=== PATIENT | female | born 1990 | race Caucasian/White ===

== ENCOUNTER → 2016-04-17 | Outpatient (CLI) | payer OTHER ==
[~2016-04-17] MED LIST: DESV100T PO; FOLI1TAB8 PO; THIA50TA3 PO
[2016-04-17 18:58] LABS: ALT/SGPT 18 U/L (12-78); BLOOD UREA NITROGEN 9 mg/dl (7-18); BUN/CREATININE RATIO 11.8 (10-20); CALCIUM 9.2 mg/dl (8.5-10.1); CARBON DIOXIDE 27 mmol/L (21-32); CHLORIDE 104 mmol/L (98-107); CREATININE 0.72 mg/dl (0.60-1.20); GLUCOSE 81 mg/dl (70-99); POTASSIUM 3.8 mmol/L (3.5-5.1); SODIUM 142 mmol/L (136-145)
[2016-04-17 19:01] LABS: ALB/GLOB RATIO 1.3 (0.9-2); ALKALINE PHOSPHATASE 45 U/L (45-117); AST/SGOT 21 U/L (15-37); PHOSPHORUS 2.7 mg/dl (2.5-4.9)
== END | disposition home or self-care (01) ==
LOC: C.LAB 18:08
PROVIDERS: ATTEND Registered Nurse
DX: F50.02 Anorexia nervosa, binge eating/purging type (principal)

== ENCOUNTER → 2016-04-20 | Outpatient (CLI) | payer OTHER ==
[~2016-04-20] MED LIST changes: +FOLI1TAB7 PO; -FOLI1TAB8 PO
--- NOTE | 2016-04-20 16:46 | ECHOCARDIOGRAM REPORT ---
*NOTICE TO RECEIVING CONSTITUTION PARTY AGENCY This information is strictly Confidential and protected under [place] law. [place] law prohibits you from making any further disclosure of this information unless further disclosure is expressly permitted by the written consent of the person to whom it pertains or is authorized by law. A general authorization for the release of medical or other information is not sufficient for this purpose. Hospital accepts no responsibility if the information is made available to any other person, INCLUDING THE PATIENT. Interpretation Summary * Name: WMLIZZIE Study Date: 04/20/2016 01:46 PM BP: 106/62 mmHg * Patient Location: [facility], [place], [facility] HR: 78 * : 1990 (M/d/yyyy) Gender: Female Height: 61 in * Age: 25 yrs Ethnicity: [place] Weight: 86 lb * Ordering Physician: Niharika Tafoya * Referring Physician: Niharika Tafoya * Performed By: Lizzie Kearney RDCS * * Reason For Study: MURMURS, ANOREXIA * BSA: 1.3 m2 * History: MURMURS, ANOREXIA * -- Conclusions -- * Overall normal echocardiogram. * No significant mitral valve prolapse visualized. No mitral regurgitation. * Mild pulmonic valve insufficiency (not significant). Procedure Details * A complete two-dimensional transthoracic echocardiogram was performed (2D, M-mode, Doppler and color flow Doppler). Left Ventricle * The left ventricle is grossly normal size. * There is normal left ventricular wall thickness. * Ejection Fraction = 50-55%. * The left ventricular wall motion is normal at rest. Right Ventricle * The right ventricle is grossly normal size. * The right ventricular systolic function is normal. Atria * The left atrial size is normal. * Right atrial size is normal. Mitral Valve * The mitral valve is not well visualized. * The mitral valve is grossly normal. * There is no mitral valve prolapse present. * There is no mitral valve stenosis. * There is no mitral regurgitation noted. Tricuspid Valve * The tricuspid valve is not well visualized. * The tricuspid valve is not well visualized, but is grossly normal. * There is no tricuspid stenosis. * Significant tricuspid regurgitation is absent. Aortic Valve * The aortic valve is not well visualized. * No hemodynamically significant valvular aortic stenosis. * There is no significant aortic regurgitation. Pulmonic Valve * The pulmonic valve is not well visualized. MMode 2D Measurements and Calculations IVSd 0.63 cm IVSs 0.70 cm LVIDd 3.7 cm LVIDs 2.8 cm LVPWd 0.62 cm LVPWs 1.1 cm IVS/LVPW 1.0 FS 25.3 % EDV(Teich) 59.1 ml ESV(Teich) 29.1 ml EF(Teich) 50.7 % EDV(cubed) 51.7 ml ESV(cubed) 21.6 ml EF(cubed) 58.3 % % IVS thick 9.5 % % LVPW thick 80.3 % LV mass(C)d 60.2 grams LV mass(C)dI 45.6 grams/m\S\2 LV mass(C)s 63.2 grams LV mass(C)sI 47.9 grams/m\S\2 SV(Teich) 30.0 ml SI(Teich) 22.7 ml/m\S\2 SV(cubed) 30.1 ml SI(cubed) 22.8 ml/m\S\2 Ao root diam 2.5 cm Ao root area 4.9 cm\S\2 LA dimension 2.8 cm LA/Ao 1.1 Doppler Measurements and Calculations MV E max huseyin 89.3 cm/sec MV A max huseyin 68.1 cm/sec MV E/A 1.3 MV dec time 0.20 sec Ao V2 max 106.9 cm/sec Ao max PG 4.6 mmHg Ao max PG (full) 1.7 mmHg LV V1 max PG 2.8 mmHg LV V1 max 84.4 cm/sec
== END | disposition home or self-care (01) ==
LOC: C.CPL 13:29
PROVIDERS: ATTEND Family Medicine
DX: R01.1 Cardiac murmur, unspecified (principal); F50.00 Anorexia nervosa, unspecified

== ENCOUNTER 2017-05-02 19:56 | Inpatient (IN) | payer OTHER ==
[~2017-05-02] VITALS: Ht 154.9 cm; Wt 32.5 kg
[~2017-05-02 19:56] MED LIST changes: -FOLI1TAB7 PO; +FOLI1TAB8 PO
--- NOTE | 2017-05-02 20:55 | EMERGENCY ROOM VISIT NOTE ---
History Report prepared by Miguelina: Brandon Nevarez Under the Supervision of: Dr. Kemar Reynolds M.D. First contact with patient: 20:33 Chief Complaint: ALCOHOL OVERDOSE Stated Complaint: ALCOHOL OVERDOSE Nursing Triage Summary: pt brought to main ED by ALS services for alcohol overdose. ALS report they were called by pt's friend and roommate, report pt has been drinking since saturday , hx of alcoholism and eating disorder, friend reported pt was not talking and belived this to be abnormal behavior for her. upon assessment, pt with eyes closed, will sit up in bed and open eyes, responds "Hi." but does not provide any further verbal responses. no incontinence or vomiting noted prehospital. pt skin warm and dry. pt breathing regularly and independently. pt restless in bed, intermittently sitting up and rolling from side to side. pt has noted cuts with scabs on bilateral hip areas and multiple scars on wrists. brusing noted around right eye. friend/roommate states "she has been tipsy since saturday morning at 8am. she has an alcohol problem and an eating disorder, she wont eat and also purges. i heard her moving around but she wasn't talking which is why I went to check on her. she did not have that black eye yesterday morning." History of Present Illness The patient is a 26 year old white female with a past medical history of anxiety , an eating disorder and alcohol abuse who presents to the ED via ALS with a cc of a persistent alcohol overdose beginning yesterday. Positive lack of notable responsiveness, bruising to right eye, scabs to bilateral hips. Per the patient' s friend, the patient has "a drinking problem" and was noted to be "tipsy" yesterday morning. The patient was then checked on by her friend earlier today, and the patient was not talking which is unusual for the patient when she is drunk. The patient was also noted to have a black right eye which was noted to be new, and some scabs to both hips. The patient's friend states that the patient does not use recreational drugs. History limited secondary to patient's intoxication. Source of History: friend History Limited By: intoxication Onset: Yesterday Position: other (global - alcohol intoxication) Symptom Intensity: patient has history of alcohol abuse Quality: other (patient not responding well) Timing: other (persistent) Note: Positive lack of notable responsiveness, bruising to right eye, scabs to bilateral hips. Review of Systems ROS limited secondary to patient's alcohol intoxication. Past Medical & Surgical Medical Problems: (1) Eating disorder (2) Starvation ketoacidosis Surgical Problems: (1) No significant past surgical history Family History Patient reports no known family medical history. Social History Smoking Status: Never Smoker Alcohol Use: heavy Drug Use: none Marital Status: single Housing Status: lives with roommate Occupation Status: student Current/Historical Medications Scheduled Desvenlafaxine Succinate Er (Pristiq), 100 MG PO DAILY Folic Acid (Folvite), 1 TAB PO DAILY Thiamine Hcl (Vitamin B-1), 50 MG PO DAILY Allergies Coded Allergies: No Known Allergies (Unverified , 08/06/15) Physical Exam Vital Signs Date Time Temp Pulse Resp B/P (MAP) Pulse Ox O2 Delivery O2 Flow Rate FiO2 05/03/17 01:13 130 05/03/17 01:01 119 18 124/76 94 Room Air 05/03/17 00:40 123 18 132/71 94 Room Air 05/02/17 23:24 139 20 135/79 96 Room Air 05/02/17 21:40 134 18 129/88 96 Room Air 05/02/17 20:15 136 05/02/17 20:00 97 Room Air 05/02/17 20:00 37.0 126 18 123/82 97 Room Air Physical Exam GENERAL: Stuporous but arousable. HENT: Normocephalic, atraumatic. EYES: Trace ecchymosis to the right periorbital area, no proptosis, no periorbital edema. PERRL. NECK: Supple. No nuchal rigidity. FROM. RESPIRATORY: CTAB, no rhonchi, wheezing, crackles CARDIAC: Tachycardic and regular, no MRG ABDOMEN: Soft, NTND, BS+ MSK: No chest wall TTP, no LE edema NEURO: GCS 14 [id number], mild dysarthria noted, moves all 4s on command SKIN: Multiple horiztonal incisional scars likely consistent with prior cutting over the arms. Medical Decision & Procedures ER Provider Diagnostic Interpretation: CT: Radiology results as stated below per my review and radiologist interpretation CT SCAN OF THE BRAIN WITHOUT IV CONTRAST CLINICAL HISTORY: Intoxication. Facial bruising. COMPARISON STUDY: No priors TECHNIQUE: Unenhanced axial CT scan of the brain is performed from the vertex to the skull base. A dose lowering technique was utilized adhering to the principles of ALARA. CT DOSE: 1947.04 mGy.cm FINDINGS: Brain parenchyma: The brain parenchyma is normal in appearance. There is no hemorrhage, mass effect, or evidence of acute territorial ischemia by CT criteria. Wills-white matter is preserved. No extra-axial fluid collection is seen. Ventricles, sulci, cisterns: Normal in configuration. Intracranial vasculature: The visualized intracranial vasculature at the skull base is normal in appearance. Calvarium: There is no depressed calvarial fracture. Sinuses and mastoids: The visualized paranasal sinuses are clear. The mastoid air cells are well pneumatized. Orbits: The bony orbits are grossly intact. IMPRESSION: No acute intracranial abnormality. Electronically signed by: Quincy Aggarwal M.D. 05/02/2017 9:30 PM Dictated Date/Time: 05/02/2017 9:[address] SCAN OF THE CERVICAL SPINE CLINICAL HISTORY: Intoxication. Facial bruising. COMPARISON STUDY: No priors. TECHNIQUE: CT scan of the cervical spine is performed from the skull base to the upper thoracic spine. Images are reviewed in the axial, sagittal, and coronal planes. IV contrast was not administered for this examination. A dose lowering technique was utilized adhering to the principles of ALARA. FINDINGS: Skeletal structures: The skeletal structures are well mineralized. There is no evidence of fracture or subluxation involving the cervical spine. Vertebral body height and alignment are maintained. There is straightening of the cervical lordosis with reversal centered at C4. The odontoid process and lateral masses are intact. The atlantoaxial articulation is preserved. The spinous processes appear intact. Intervertebral discs: The disc spaces are well maintained. Central canal: Widely patent. Soft tissues: The prevertebral and paraspinous soft tissues are within normal limits. Calvarium: The visualized calvarium at the skull base appears intact. Brain parenchyma: Partially visualized brain parenchyma the skull base is within normal limits. Sinuses and mastoids: The visualized paranasal sinuses are clear. The mastoid air cells are well pneumatized. Lung apices: Clear as visualized. IMPRESSION: There is no evidence of fracture or subluxation involving the cervical spine. Electronically signed by: Quincy Aggarwal M.D. 05/02/2017 9:32 PM Dictated Date/Time: 05/02/2017 9:28 PM Laboratory Results 05/02/17 21:32 Test 05/02/17 21:32 Anion Gap 14.0 mmol/L (3-11) Est Creatinine Clear Calc Drug Dose 63.4 ml/min Estimated GFR () 139.2 Estimated GFR (Non- 120.1 BUN/Creatinine Ratio 19.1 (10-20) Calcium Level 8.5 mg/dl (8.5-10.1) Ethyl Alcohol mg/dL 402.8 mg/dl (0-3) Laboratory results reviewed by me Medications Administered Medications (Trade) Dose Ordered Sig/Trina Route Start Time Stop Time Status Last Admin Dose Admin Lorazepam (Ativan Inj) 1 mg NOW STAT IV 05/02/17 22:11 05/02/17 22:12 DC 05/02/17 22:11 1 MG Sodium Chloride 1,000 ml @ 999 mls/hr Q1H1M STAT IV 05/02/17 22:11 05/02/17 23:11 DC 05/02/17 22:11 999 MLS/HR Folic Acid 1 mg/ Syringe 10 ml @ 5 mls/min ONE STAT IV 05/02/17 23:05 05/02/17 23:07 DC 05/03/17 00:05 5 MLS/MIN Lorazepam (Ativan Inj) 1 mg NOW STAT IV 05/02/17 23:05 05/02/17 23:07 DC 05/02/17 23:21 1 MG Thiamine HCl (Vitamin B-1 Inj) 100 mg NOW STAT IV 05/02/17 23:05 05/02/17 23:07 DC 05/03/17 00:02 100 MG Lorazepam (Ativan Inj) 1 mg NOW STAT IV 05/03/17 00:24 05/03/17 00:25 DC 05/03/17 00:29 1 MG ED Course 0: The patient was evaluated in room C10. A limited history and physical exam was performed. 2141: I reevaluated the patient and updated her friend. 2299: The patient was signed out to Dr. Vargas at change of shift. Medical Decision The patient is a 26 year old white female with a past medical history of anxiety , an eating disorder and alcohol abuse who presents to the ED via ALS with a cc of a persistent alcohol overdose beginning yesterday. Positive lack of notable responsiveness, bruising to right eye, scabs to bilateral hips. Differential diagnosis: Etiologies such as alcohol intoxication, toxicologic, infection, hypoglycemia, electrolyte abnormalities, cardiac sources, intracerebral event, neurologic, as well as others were entertained. Patient was seen and evaluated the bedside. Patient's history and physical exam were limited to the patient's inebriated state. Some of the history was obtained from the friend at the bedside. The friend noted the patient does have a significant alcohol history and does have a prior history of eating disorder. At bedside the patient does respond to some verbal and tactile stimuli. The patient was able to give me her name as well as the friend's name in the room. The patient was able to follow commands and moved all fours without issue. The patient's pupils are equally round and reactive. The patient did have a BMP and alcohol level obtained. Given the patient's scant ecchymosis over the right eyelid without any periorbital swelling or proptosis a CT of the head and neck were obtained. CTs of the head and neck were negative acute. The patient did have a very elevated alcohol level. The patient was given IV Ativan and IV fluids. Upon reassessment the patient was still moving about. Patient was given additional IV Ativan, folic acid, thiamine. Given the patient's inebriated state the patient would need to be reassessed with the patient was more clinically sober. I did notice that the patient did have a fair amount of linear scars over the arms concerning for possible self-harm. I did discuss the patient with the psych caseworker intake radio communications superintendent and discussed the patient would need to be re-evaluated by the physician but by the psych caseworker intake. The patient was signed out to the night physician Dr. Vargas. Head Trauma GCS Score: 15 Medication Reconcilliation Current Medication List: was personally reviewed by me Blood Pressure Screening Patient's blood pressure: Normal blood pressure Impression Primary Impression: Alcohol intoxication Additional Impressions: Altered mental status Alcohol abuse Hypokalemia Scribe Attestation The scribe's documentation has been prepared under my direction and personally reviewed by me in its entirety. I confirm that the note above accurately reflects all work, treatment, procedures, and medical decision making performed by me. Departure Information Dispostion Still a Patient (signed out to Dr. Vargas at change of shift) Referrals Niharika Tafoya M.D. (PCP) Patient Instructions My [facility] Problem Qualifiers Primary Impression: Alcohol intoxication Complication of substance-induced condition: with unspecified complication Qualified Codes: F10.929 - Alcohol use, unspecified with intoxication, unspecified Additional Impressions: Altered mental status Altered mental status type: unspecified Qualified Codes: R41.82 - Altered mental status, unspecified
--- NOTE | 2017-05-02 21:31 | DIAGNOSTIC IMAGING REPORT ---
CT SCAN OF THE BRAIN WITHOUT IV CONTRAST CLINICAL HISTORY: Intoxication. Facial bruising. COMPARISON STUDY: No priors TECHNIQUE: Unenhanced axial CT scan of the brain is performed from the vertex to the skull base. A dose lowering technique was utilized adhering to the principles of ALARA. CT DOSE: 1947.04 mGy.cm FINDINGS: Brain parenchyma: The brain parenchyma is normal in appearance. There is no hemorrhage, mass effect, or evidence of acute territorial ischemia by CT criteria. Wills-white matter is preserved. No extra-axial fluid collection is seen. Ventricles, sulci, cisterns: Normal in configuration. Intracranial vasculature: The visualized intracranial vasculature at the skull base is normal in appearance. Calvarium: There is no depressed calvarial fracture. Sinuses and mastoids: The visualized paranasal sinuses are clear. The mastoid air cells are well pneumatized. Orbits: The bony orbits are grossly intact. IMPRESSION: No acute intracranial abnormality. Electronically signed by: Quincy Aggarwal M.D. 05/02/2017 9:30 PM Dictated Date/Time: 05/02/2017 9:29 PM
--- NOTE | 2017-05-02 21:33 | DIAGNOSTIC IMAGING REPORT ---
CT SCAN OF THE CERVICAL SPINE CLINICAL HISTORY: Intoxication. Facial bruising. COMPARISON STUDY: No priors. TECHNIQUE: CT scan of the cervical spine is performed from the skull base to the upper thoracic spine. Images are reviewed in the axial, sagittal, and coronal planes. IV contrast was not administered for this examination. A dose lowering technique was utilized adhering to the principles of ALARA. FINDINGS: Skeletal structures: The skeletal structures are well mineralized. There is no evidence of fracture or subluxation involving the cervical spine. Vertebral body height and alignment are maintained. There is straightening of the cervical lordosis with reversal centered at C4. The odontoid process and lateral masses are intact. The atlantoaxial articulation is preserved. The spinous processes appear intact. Intervertebral discs: The disc spaces are well maintained. Central canal: Widely patent. Soft tissues: The prevertebral and paraspinous soft tissues are within normal limits. Calvarium: The visualized calvarium at the skull base appears intact. Brain parenchyma: Partially visualized brain parenchyma the skull base is within normal limits. Sinuses and mastoids: The visualized paranasal sinuses are clear. The mastoid air cells are well pneumatized. Lung apices: Clear as visualized. IMPRESSION: There is no evidence of fracture or subluxation involving the cervical spine. Electronically signed by: Quincy Aggarwal M.D. 05/02/2017 9:32 PM Dictated Date/Time: 05/02/2017 9:28 PM
[2017-05-02 22:05] LABS: CALCIUM 8.5 mg/dl (8.5-10.1); CREATININE 0.69 mg/dl (0.60-1.20); POTASSIUM 3.3 mmol/L (3.5-5.1)
[2017-05-02] MEDS ORDERED: LORAZEPAM 2 MG/ML 1 ML VIAL IV STA ×2 (22:11→23:05)
[2017-05-02] MEDS ORDERED: SODIUM CHLORIDE 0.9% 1000ML 1,000 ML IV STA (22:11)
[2017-05-02] MEDS ORDERED: FoLIC ACID INJ 1 MG in SYRINGE 9.8 ML IV STA (23:05)
[2017-05-02] MEDS ORDERED: THIAMINE HCL 100 MG/ML 2 ML VIAL IV STA (23:05)
[2017-05-03] MEDS ORDERED: LORAZEPAM 2 MG/ML 1 ML VIAL IV STA ×3 (00:24→03:00)
--- NOTE | 2017-05-03 02:51 | EMERGENCY ROOM VISIT NOTE ---
ED Visit Note First contact with patient: 23:00 Patient signed out to me at change of shift. Patient awaiting improved sobriety , repeat evaluation, and psych evaluation due to history of cutting and alcohol abuse. 0035: Patient with persistent agitation, additional Ativan ordered. IV fluids infusing slowly due to positional peripheral IV in the hand. 0145: Patient still with agitation, additional Ativan ordered. 0246: Patient still tachycardic but has not finished the first liter of IV fluids originally ordered. Patient wakes up easily answers questions, denies headache, chest pain, abdominal pain, nausea. Additional labs added as a precaution. 0400: Additional labs reassuring. 0502: Patient's heart rate finally improved now that IV fluids infusing. Patient continues to ask for her cell phone. Patient continues to deny any pain. 0607: Heart rate went back up again, patient now slightly more clear and requesting benzos for her tremors and anxiety. Heart rate in the 120s. Patient still clinically dehydrated, is tolerating cups of water at bedside. Staff has helped her ambulate to the bathroom. Patient admits to history of cutting states she has previously spoken with counselors about this. 2 subacute -appearing lacerations on right hip noted. Pt with mild tremors and continues to be restless. BP not elevated. No active hallucinations based on bedside conversation. Discussed with Dr. Rodriguez for additional evaluation for possible etoh withdrawal.
[2017-05-03 02:59] LABS: BASO % 0.5 %; BASO ABS # 0.04 K/uL (0-0.2); HEMATOCRIT 38.9 % (37-47); HEMOGLOBIN 14.3 g/dL (12.0-16.0); IG# 0.01 K/uL (0.00-0.02); LYMPH % 33.6 %; LYMPH ABS # 2.73 K/uL (1.2-3.4); MEAN CORPUSCULAR HEMOGLOBIN 35.3 pg (25-34); MEAN CORPUSCULAR HGB CONC 36.8 g/dl (32-36); MEAN PLATELET VOLUME 8.6 fL (7.4-10.4); MONO % 4.6 %; MONO ABS # 0.37 K/uL (0.11-0.59); NEUT % 61.2 %; NEUT ABS # 4.98 K/uL (1.4-6.5); PLATELET COUNT 190 K/uL (130-400); RED CELL DISTRIBUTION WIDTH CV 12.6 % (11.5-14.5); WHITE BLOOD COUNT 8.13 K/uL (4.8-10.8)
[2017-05-03] MEDS ORDERED: SODIUM CHLORIDE 0.9% 1000ML 1,000 ML IV STA ×2 (03:05→05:51)
[2017-05-03 04:36] LABS: ALBUMIN 4.4 gm/dl (3.4-5.0); TOTAL PROTEIN 8.2 gm/dl (6.4-8.2)
[2017-05-03] MEDS: LORAZEPAM 2 MG/ML 1 ML VIAL IV PRN ×2 (05:55→06:11)
--- NOTE | 2017-05-03 06:25 | History and Physical ---
History & Physical Date & Time of Service: May 03, 2017 at 06:02 Chief Complaint: Alcohol Overdose Primary Care Physician: Niharika Tafoya M.D. History of Present Illness Source: patient, hospital records 26 y/o F Hx Anorexia Nervosa, ETOH abuse. Pt was found at home severely intoxicated and brought to the ER by a friend. She was poorly responsive on arrival with an impressive alcohol level of 402. She appeared to be developing withdrawal symptoms while recovering in the ER exhibiting tremors and tachycardia. The pt had received a total of 9mg Ativan at the time of medical evaluation and was unable to stay awake long enough to answer any questions. Past Medical/Surgical History 1) Anorexia nervosa with history of inpatient treatment 2) GERD 3) Alcohol abuse 4) Osteopenia 5) Vitamin D deficiency 6) Cutting Family History Patient reports no known family medical history. Social History History of alcohol abuse Smoking Status: Never Smoker Drug Use: none Marital Status: single Occupational Status: student Allergies Coded Allergies: No Known Allergies (Unverified , 08/06/15) Home Medications Scheduled Desvenlafaxine Succinate Er (Pristiq), 100 MG PO DAILY Folic Acid (Folvite), 1 TAB PO DAILY Thiamine Hcl (Vitamin B-1), 50 MG PO DAILY Review of Systems Cannot obtain Cardiovascular: + PND Physical Exam Vital Signs Date Time Temp Pulse Resp B/P (MAP) Pulse Ox O2 Delivery O2 Flow Rate FiO2 05/03/17 05:56 108 22 116/80 97 Room Air 05/03/17 05:05 122 05/03/17 04:43 115 20 110/70 96 Room Air 05/03/17 04:00 128 24 95 05/03/17 03:51 138/91 05/03/17 03:30 140 14 95 05/03/17 03:00 144 15 97 05/03/17 02:59 126/77 05/03/17 02:30 141 18 96 05/03/17 02:24 126/76 05/03/17 02:00 147 19 96 05/03/17 01:43 132 18 127/84 97 Room Air 05/03/17 01:37 127 05/03/17 01:13 130 05/03/17 01:01 119 18 124/76 94 Room Air 05/03/17 00:40 123 18 132/71 94 Room Air 05/02/17 23:24 139 20 135/79 96 Room Air 05/02/17 21:40 134 18 129/88 96 Room Air 05/02/17 20:15 136 05/02/17 20:00 97 Room Air 05/02/17 20:00 37.0 126 18 123/82 97 Room Air General Appearance: + pertinent finding (Somnolent, thin, young female ) Head: normocephalic Eyes: normal inspection ENT: normal ENT inspection Neck: supple, no JVD Respiratory/Chest: chest non-tender, lungs clear, normal breath sounds Cardiovascular: no edema, no gallop, + tachycardia Abdomen/GI: normal bowel sounds, non tender, soft Back: normal inspection, no CVA tenderness Extremities/Musculoskelatal: normal inspection, no calf tenderness, normal capillary refill Neurologic/Psych: + pertinent finding (cannot complete exam - pupils are equal - moves all extrems spontaneously) Skin: + pertinent finding (Cutting scars on arms - a few on hip which appear more recent) Diagnostics Laboratory Results Results Past 24 Hours Test 05/02/17 21:32 05/03/17 02:53 05/03/17 03:15 Range/Units Sodium Level 143 136-145 mmol/L Potassium Level 3.3 3.5-5.1 mmol/L Chloride Level 106 98-107 mmol/L Carbon Dioxide Level 23 21-32 mmol/L Anion Gap 14.0 3-11 mmol/L Blood Urea Nitrogen 13 7-18 mg/dl Creatinine 0.69 0.60-1.20 mg/dl Est Creatinine Clear Calc Drug Dose 63.4 ml/min Estimated GFR () 139.2 Estimated GFR (Non- 120.1 BUN/Creatinine Ratio 19.1 10-20 Random Glucose 103 70-99 mg/dl Calcium Level 8.5 8.5-10.1 mg/dl Total Bilirubin 0.7 0.2-1 mg/dl Direct Bilirubin 0.2 0-0.2 mg/dl Aspartate Amino Transf (AST/SGOT) 50 15-37 U/L Alanine Aminotransferase (ALT/SGPT) 24 12-78 U/L Alkaline Phosphatase 60 45-117 U/L Total Protein 8.2 6.4-8.2 gm/dl Albumin 4.4 3.4-5.0 gm/dl Lipase 228 73-393 U/L Ethyl Alcohol mg/dL 402.8 0-3 mg/dl White Blood Count 8.13 4.8-10.8 K/uL Red Blood Count 4.05 4.2-5.4 M/uL Hemoglobin 14.3 12.0-16.0 g/dL Hematocrit 38.9 37-47 % Mean Corpuscular Volume 96.0 80-100 fL Mean Corpuscular Hemoglobin 35.3 25-34 pg Mean Corpuscular Hemoglobin Concent 36.8 32-36 g/dl Platelet Count 190 130-400 K/uL Mean Platelet Volume 8.6 7.4-10.4 fL Neutrophils (%) (Auto) 61.2 % Lymphocytes (%) (Auto) 33.6 % Monocytes (%) (Auto) 4.6 % Eosinophils (%) (Auto) 0.0 % Basophils (%) (Auto) 0.5 % Neutrophils # (Auto) 4.98 1.4-6.5 K/uL Lymphocytes # (Auto) 2.73 1.2-3.4 K/uL Monocytes # (Auto) 0.37 0.11-0.59 K/uL Eosinophils # (Auto) 0.00 0-0.5 K/uL Basophils # (Auto) 0.04 0-0.2 K/uL RDW Standard Deviation 44.0 36.4-46.3 fL RDW Coefficient of Variation 12.6 11.5-14.5 % Immature Granulocyte % (Auto) 0.1 % Immature Granulocyte # (Auto) 0.01 0.00-0.02 K/uL Urine Opiates Screen NEG NEG Urine Methadone, Qualitative NEG NEG Urine Barbiturates NEG NEG Urine Phencyclidine (PCP) Level NEG NEG Ur Amphetamine/Methamphetamine NEG NEG MDMA (Ecstasy) Screen NEG NEG Urine Benzodiazepines Screen NEG NEG Urine Cocaine Metabolite NEG NEG Urine Marijuana (THC) NEG NEG Impression Assessment and Plan 26 y/o F Hx Anorexia Nervosa, ETOH abuse. Pt was found at home severely intoxicated and brought to the ER by a friend. She was poorly responsive on arrival with an impressive alcohol level of 402. She appeared to be developing withdrawal symptoms while recovering in the ER exhibiting tremors and tachycardia. The pt had received a total of 9mg Ativan at the time of medical evaluation and was unable to stay awake long enough to answer any questions. 1) ETOH abuse and withdrawal - initial level was dangerously high. She will continue to receive IVF, scheduled Librium, PRN Ativan, IV thiamine and folate. The pt should be assessed by mental health prior to DC as she is at significant risk for self harm. 2) Anorexia - BMI qualifies as severe anorexia - again, she should be assessed by mental health prior to DC. 3) Hypokalemia - mild - will provide K and Mg - EKG is pending Full code - SCDs due to fall/trauma risk Total time for this admit including review of labs, meds, records - discussion with pt and ER attending - 35 min Level of Care Telemetry Resuscitation Status FULL RESUSCITATION VTE Prophylaxis Given or contraindicated: SCD's
[2017-05-03] MEDS ORDERED: LORAZEPAM 2 MG/ML 1 ML VIAL IV PRN ×2 (06:30)
[2017-05-03] MEDS ORDERED: ACETAMINOPHEN 325 MG TAB PO PRN (06:30)
[2017-05-03] MEDS ORDERED: MAGNESIUM HYDROXIDE SUSP 30 ML UDC PO PRN (06:30)
[2017-05-03] MEDS ORDERED: ALUMINUM/MAGNESIUM/SIMETH (MAALOX MAX) 30 ML UDC PO PRN (06:30)
[2017-05-03] MEDS ORDERED: ONDANSETRON INJ 2 MG/ML 2 ML VIAL IV PRN (06:30)
[2017-05-03] MEDS ORDERED: POLYETHYLENE (MIRALAX) 17 GM PACK PO PRN (06:30)
[2017-05-03 07:35] VITALS: BP 128/89; PULSE 119; TEMP 36.8; O2SAT 96; BMI 13.5
[2017-05-03] MEDS: CHLORDIAZEPOXIDE 10 MG CAP PO SCH ×3 (07:54→20:38)
[2017-05-03] MEDS ORDERED: MAGNESIUM SULFATE 1GM / D5W 1 GM in PREMIXED IN D5W 100 ML IV ONE (08:00)
[2017-05-03] MEDS: D5NSS + 20MEQ KCL 1,000 ML IV SCH ×3 (08:07→22:56)
[2017-05-03] MEDS: FoLIC ACID INJ 1 MG in SYRINGE 9.8 ML IV SCH (08:08)
[2017-05-03] MEDS ORDERED: INFLUENZA ADMINISTRATION CHARGE ONE (08:30)
[2017-05-03] MEDS ORDERED: INFLUENZA VIRUS QUAD VACCINE 0.5 ML SYR IM. ONE (08:30)
[2017-05-03] MEDS ORDERED: TPN/PPN CONSULT PHARMACY STA (09:32)
[2017-05-03] MEDS ORDERED: TPN/PPN CONSULT PHARMACY PRN (09:45)
[2017-05-03 11:21] VITALS: BP 119/79; PULSE 112; TEMP 37; O2SAT 99
[2017-05-03] MEDS ORDERED: POTASSIUM PHOSPHATE INJ 21 MMOL in SODIUM CHLORIDE 0.9% 500ML 500 ML IV ONE ×2 (13:30→22:45)
[2017-05-03 14:32] VITALS: Ht 154.9 cm; Wt 32.5 kg
--- NOTE | 2017-05-03 14:38 | Psychiatric Progress Notes ---
Psychiatric Progress Note Date of Service May 03, 2017. Notes patient with ETOH OD, attempted to see patient after 11 am, liaison unable to assess due to medical condition/sedation from AWSS protocol meds.
[2017-05-03 15:11] VITALS: BP 130/88; PULSE 106; TEMP 36.8; O2SAT 100
--- NOTE | 2017-05-03 15:56 | History and Physical ---
History & Physical Date of Service May 03, 2017. History & Physical 26 yo female with severe protein caloric malnutrition and possible alcohol withdrawal. Patient has electrolyte abnormalities including hypokalemia and hypophosphatemia. These were replaced. Initially tried to obtain intake through NG tube but patient refused. I explained to patient that it is important that she eats to improve her BMI and also to regain intestinal function. However, I am ok with waiting a day as her electrolytes are not completely replenished. Given that refeeding will likely lead to more hypophosphatemia. It will be easier to manage if her electrolytes are at baseline before refeeding. Patient agrees to stay in hospital after thoughts of leaving AMA. Patient understands that this may be a long hospital stay. Psych is on the case but did not examine patient today.
[2017-05-03 19:16] VITALS: BP 121/91; PULSE 91; TEMP 37.1; O2SAT 99
[2017-05-03 21:26] LABS: CALCIUM 7.8 mg/dl (8.5-10.1); CARBON DIOXIDE 24 mmol/L (21-32); CREATININE 0.49 mg/dl (0.60-1.20); GLUCOSE 96 mg/dl (70-99); PHOSPHORUS 2.1 mg/dl (2.5-4.9)
[2017-05-03 21:29] LABS: BLOOD UREA NITROGEN 5 mg/dl (7-18); POTASSIUM 3.9 mmol/L (3.5-5.1); SODIUM 133 mmol/L (136-145)
[2017-05-03] MEDS ORDERED: SODIUM CHLORIDE 1 GM TAB PO ONE (22:30)
[2017-05-03] MEDS ORDERED: POTASSIUM PHOS 3 MMOL/1 ML INFUSION IV ONE (22:30)
[2017-05-03] MEDS: THIAMINE HCL INJ 100 MG in SYRINGE 9 ML IV SCH (22:56)
[2017-05-03 23:39] VITALS: BP 132/97; PULSE 89; TEMP 36.6; O2SAT 99
[2017-05-04 04:20] VITALS: BP 122/86; PULSE 75; TEMP 36.6; O2SAT 98
[2017-05-04 06:14] LABS: HEMATOCRIT 36.6 % (37-47); HEMOGLOBIN 13.3 g/dL (12.0-16.0); MEAN CELL VOLUME 96.1 fL (80-100); MEAN CORPUSCULAR HEMOGLOBIN 34.9 pg (25-34); MEAN CORPUSCULAR HGB CONC 36.3 g/dl (32-36); MEAN PLATELET VOLUME 8.8 fL (7.4-10.4); PLATELET COUNT 113 K/uL (130-400); RED CELL DISTRIBUTION WIDTH CV 12.4 % (11.5-14.5); RED CELL DISTRIBUTION WIDTH SD 42.9 fL (36.4-46.3); WHITE BLOOD COUNT 3.59 K/uL (4.8-10.8)
[2017-05-04 06:45] LABS: BLOOD UREA NITROGEN 4 mg/dl (7-18); CALCIUM 7.9 mg/dl (8.5-10.1); CARBON DIOXIDE 23 mmol/L (21-32); CREATININE 0.49 mg/dl (0.60-1.20); GLUCOSE 93 mg/dl (70-99); PHOSPHORUS 2.3 mg/dl (2.5-4.9); POTASSIUM 3.6 mmol/L (3.5-5.1); SODIUM 135 mmol/L (136-145)
[2017-05-04] MEDS: FoLIC ACID INJ 1 MG in SYRINGE 9.8 ML IV SCH (08:02)
[2017-05-04] MEDS: MULTI-VITAMIN INFUSION INJ 10 ML, THIAMINE HCL INJ 100 MG, FoLIC ACID INJ 1 MG in SODIU... IV SCH (08:05)
[2017-05-04] MEDS: CHLORDIAZEPOXIDE 10 MG CAP PO SCH ×3 (08:05→20:39)
[2017-05-04 08:13] VITALS: BP 136/93; PULSE 76; TEMP 36.7; O2SAT 100
[2017-05-04] MEDS ORDERED: NURSING VERBAL MED ORDER ONE (11:45)
[2017-05-04 12:03] VITALS: BP 125/90; PULSE 83; TEMP 36.7; O2SAT 100
[2017-05-04 15:22] VITALS: BP 134/95; PULSE 79; TEMP 37.1; O2SAT 100
--- NOTE | 2017-05-04 15:56 | Progress Note ---
Subjective Date of Service: May 04, 2017. Subjective Pt evaluation today including: conversation w/ patient, conversation w/ family , physical exam, chart review, lab review, review of studies, review of inpatient medication list Pain: none PO Intake: good Voiding: no voiding problems Patient is seen and examined by me. Pt denies cp, sob, dizziness, palpitation and LOC. Pt denies nausea, vomiting, abdominal pain and diarrhea.pt still has a poor appetite and after a lengthy discussion with her able to connivence her to eat breakfast which include cereal with milk and strawberries. I think its her eating disorder rather alcohol disorder which is causing her not to eat.Both parent live far her father is trying to make it to hospital today.We had a brief conversation over phone with both parent. 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 Pt is very flat and does not engage in much conversation. No intension to harm self or other Problem List Medical Problems: (1) Alcohol intoxication Status: Acute (2) Alcohol intoxication Status: Acute (3) Altered mental status Status: Acute Review of Systems Psychiatric: + anxiety, No depression symptoms, No insomnia Endo: + fatigue All Other Systems: Reviewed and Negative Medications Medications (Trade) Dose Ordered Sig/Trina Route Start Time Stop Time Status Last Admin Dose Admin Thiamine HCl 100 mg/Syringe 10 ml @ 2 mls/min Q24H IV 05/03/17 23:00 06/02/17 22:59 05/03/17 22:56 2 MLS/MIN Multivitamins 10 ml/Thiamine HCl 100 mg/Folic Acid 1 mg/Sodium Chloride 1,011.2 ml @ 150 mls/ hr DAILY IV 05/04/17 09:00 06/03/17 08:59 05/04/17 08:05 150 MLS/HR Sodium Chloride (Sodium Chloride Tab) 1 gm ONE ONCE PO 05/03/17 22:30 05/03/17 22:38 DC 05/03/17 23:39 1 GM Potassium Phosphate 21 mmol/ Sodium Chloride 507 ml @ 88 mls/hr ONE ONCE IV 05/03/17 22:45 05/04/17 04:30 DC 05/03/17 22:55 88 MLS/HR Objective Vital Signs Date Time Temp Pulse Resp B/P (MAP) Pulse Ox O2 Delivery O2 Flow Rate FiO2 05/04/17 15:22 37.1 79 17 134/95 (108) 100 Room Air 05/04/17 12:03 36.7 83 16 125/90 (102) 100 Room Air 05/04/17 12:00 Room Air 05/04/17 08:13 36.7 76 18 136/93 (107) 100 Room Air 05/04/17 08:00 Room Air 05/04/17 04:20 36.6 75 16 122/86 (98) 98 Room Air 05/04/17 04:00 Room Air 05/04/17 00:00 Room Air 05/03/17 23:39 36.6 89 16 132/97 (109) 99 Room Air 05/03/17 20:00 Room Air 05/03/17 19:16 37.1 91 16 121/91 (101) 99 Room Air 05/03/17 16:00 Room Air Physical Exam General Appearance: no apparent distress Eyes: EOMI, sclerae normal Neck: supple Respiratory/Chest: lungs clear, normal breath sounds, no respiratory distress Cardiovascular: regular rate, rhythm, no edema, no murmur Abdomen: normal bowel sounds, non tender, soft Neurologic/Psychiatric: no motor/sensory deficits, alert, normal mood/affect, oriented x 3 Skin: no rash Lymphatic: no adenopathy Laboratory Results Last 24 Hours Test 05/03/17 20:53 05/04/17 05:42 Sodium Level 133 mmol/L 135 mmol/L Potassium Level 3.9 mmol/L 3.6 mmol/L Chloride Level 101 mmol/L 103 mmol/L Carbon Dioxide Level 24 mmol/L 23 mmol/L Anion Gap 9.0 mmol/L 9.0 mmol/L Blood Urea Nitrogen 5 mg/dl 4 mg/dl Creatinine 0.49 mg/dl 0.49 mg/dl Est Creatinine Clear Calc Drug Dose 89.3 ml/min 89.3 ml/min Estimated GFR () > 150.0 > 150.0 Estimated GFR (Non- 134.5 134.5 BUN/Creatinine Ratio 10.9 7.5 Random Glucose 96 mg/dl 93 mg/dl Calcium Level 7.8 mg/dl 7.9 mg/dl Phosphorus Level 2.1 mg/dl 2.3 mg/dl White Blood Count 3.59 K/uL Red Blood Count 3.81 M/uL Hemoglobin 13.3 g/dL Hematocrit 36.6 % Mean Corpuscular Volume 96.1 fL Mean Corpuscular Hemoglobin 34.9 pg Mean Corpuscular Hemoglobin Concent 36.3 g/dl RDW Standard Deviation 42.9 fL RDW Coefficient of Variation 12.4 % Platelet Count 113 K/uL Mean Platelet Volume 8.8 fL Magnesium Level 1.9 mg/dl Assessment and Plan Assessment and Plan 26 y/o F Hx Anorexia Nervosa, ETOH abuse. Pt was found at home severely intoxicated and brought to the ER by a friend. She was poorly responsive on arrival with an alcohol level of 402. She appeared to be developing withdrawal symptoms while recovering in the ER exhibiting tremors and tachycardia. The pt had received a total of 9mg Ativan at the time of medical evaluation and was unable to stay awake long enough to answer any questions. Currently doing welll able to tolerate some clear diet. 1) ETOH -- Abuse and withdrawal -- No tremors and tachycardia She will continue to receive IVF, scheduled Librium, PRN Ativan, IV thiamine and folate. -- The pt should be assessed by mental health prior to DC as she is at significant risk for self harm. 2) Anorexia - BMI qualifies as severe anorexia - again, she should be assessed by mental health prior to DC. 3) Hypokalemia - resolved - follow up BMP, Mg in am Continued [facility] stay due to: inadequate po fluid intake, home environment unsafe for pt Discharge planning: home
--- NOTE | 2017-05-04 16:50 | Psychiatric Consultation ---
Consultation Date of Consultation May 04, 2017. Identifying Data Lizzie Muller is a 26-year-old female admitted to the medical floor for alcohol intoxication. Psychiatric consult requested due to patient's alcohol abuse, as well as history of cutting and an eating disorder. Chief Complaint "My friend found me and called 911". History of Present Illness Lizzie Muller is a 26-year-old female seen on psychiatric consult service for alcohol intoxication and suspected abuse. There is also a reported history of cutting and a long history of an eating disorder. The patient's blood alcohol at arrival to the ED was 402.8. She began to experience tachycardia and tremors in the ED and was admitted to the medical floor. Pt's reported alcohol use is an average of 8 drinks per day, 3-4 times a week for the past year. She admits she has a problem with alcohol use, but denies suicidal ideation. States that this episode of intoxication was not in an attempt for suicide. She reports she has been admitted to the hospital for her alcohol use in the past. She states she feels that during periods of abstinence, her awareness to her anxiety about eating and food is heightened. Her longest period of sobriety in the past 3 months has been about 1 week. Pt reports she has been off her psychiatric medications for the past few days and has been feeling "numb" about school. She describes herself as "generally always anxious". She is currently prescribed Pristiq 125mg PO qd, 2.5mg olanzapine, and gabapentin 900mg TID through [facility]. She reports meeting with providers there about once a month to monitor her symptoms and manage medications. Pt sees Zaida Russell weekly for therapy. She reports one inpatient hospitalization in 2007 for SI, following a suicide attempt in which she had overdose on Tylenol. She states she has been in inpatient treatment for her anorexia in 2009 and in a residential facility in [place] in 2016, there is mention of ongoing treatment for her eating disorder. She reports she feels that she dose well in treatment, but finds it difficult to maintain that progress on her own. Pt denies a family history of psychiatric disorders. She reports a personal health history of anorexia nervosa, history of alcohol withdrawal and altered mental status, pancreatitis, Vitamin D deficiency, osteopenia, and GERD. Past psychiatric medications include mirtazapine, which caused drowsiness, fluoxetine , and bupropion. Pt denies SI/HI, A/V hallucinations, and denies SIB currently. She did have an episode of cutting 2 weeks ago. Past Psychiatric History Current OP Treatment: psychiatrist (Dr. Melinda Callahan [facility]), therapist ([facility] Russell) Prior Psych Hospitalizations: other (Inpatient eating disorder treatment in 2009 and 2015; Inpatient for SI in 2007) Access to a Gun: No Suicide Attempts: No Past Medication Trials - Mirtazapine (drowsiness) - Fluoxetine - Bupropion Past Medical/Surgical History History of Concussion/Seizure: No (1) Pancreatitis Allergies Allergies: Coded Allergies: No Known Allergies (Unverified , 08/06/15) Home Medications Scheduled Desvenlafaxine Succinate Er (Pristiq), 100 MG PO DAILY Folic Acid (Folvite), 1 TAB PO DAILY Thiamine Hcl (Vitamin B-1), 50 MG PO DAILY Family History Patient reports no known family medical history. History of Suicide: No History of Substance Abuse: No Psychiatric History: No Alcohol Use Alcohol Use In Past 12 Months: Yes (drinks heavily) Smoking Use Smoking Status: Unknown if Ever Smoked Personal History Lives in: Current [employer] student; originally from [place], [place] Education: graduated college ([employer]), advanced degree (Masters degree, working toward her PhD in Family Studies) Work History: Student Relationship History: never Children: None Spiritual Affiliation: "sure" Legal History: reported (DUI - 1.5 years ago) Psychological Trauma History: Denies Hx Traumatic Event Review of Systems Psych: denies symptoms other than stated above Constitutional: denied Cardiovascular: denied GI: denied Neurologic: denied Remainder of 10 body systems also reviewed and denied other than noted above. Examination Vital Signs Vital Signs Past 12 Hours Date Time Temp Pulse Resp B/P (MAP) Pulse Ox O2 Delivery O2 Flow Rate FiO2 05/04/17 16:00 Room Air 05/04/17 15:22 37.1 79 17 134/95 (108) 100 Room Air 05/04/17 12:03 36.7 83 16 125/90 (102) 100 Room Air 05/04/17 12:00 Room Air 05/04/17 08:13 36.7 76 18 136/93 (107) 100 Room Air 05/04/17 08:00 Room Air Laboratory Results Last 24 Hours Test 05/03/17 20:53 05/04/17 05:42 05/04/17 16:08 Sodium Level 133 mmol/L 135 mmol/L Potassium Level 3.9 mmol/L 3.6 mmol/L Chloride Level 101 mmol/L 103 mmol/L Carbon Dioxide Level 24 mmol/L 23 mmol/L Anion Gap 9.0 mmol/L 9.0 mmol/L Blood Urea Nitrogen 5 mg/dl 4 mg/dl Creatinine 0.49 mg/dl 0.49 mg/dl Est Creatinine Clear Calc Drug Dose 89.3 ml/min 89.3 ml/min Estimated GFR () > 150.0 > 150.0 Estimated GFR (Non- 134.5 134.5 BUN/Creatinine Ratio 10.9 7.5 Random Glucose 96 mg/dl 93 mg/dl Calcium Level 7.8 mg/dl 7.9 mg/dl Phosphorus Level 2.1 mg/dl 2.3 mg/dl White Blood Count 3.59 K/uL Red Blood Count 3.81 M/uL Hemoglobin 13.3 g/dL Hematocrit 36.6 % Mean Corpuscular Volume 96.1 fL Mean Corpuscular Hemoglobin 34.9 pg Mean Corpuscular Hemoglobin Concent 36.3 g/dl RDW Standard Deviation 42.9 fL RDW Coefficient of Variation 12.4 % Platelet Count 113 K/uL Mean Platelet Volume 8.8 fL Magnesium Level 1.9 mg/dl Mental Examination During interview pt is: alert and oriented, cooperative (very luciano and honest) Appearance: appropriately dressed (in hospital gown), appropriately groomed Eye contact is: fair Motor behavior is: no abnormal motor movements Speech: normal in rate, rhythm & volume Affect: flat Mood is: depressed Thought process: goal directed, linear, logical, clear, coherent Thought content: reality based without delusions Suicidal thought are: denied Homicidal thoughts are: denied Hallucinations: denies auditory, denies visual Intelligence estimated to be: above average Insight: fair Judgement: fair Impression / Recommendations Impression 26-year-old female admitted to medical floor for alcohol intoxication with withdrawal. Pt has significant history of alcohol abuse as well as an eating disorder. Pt reports that she feels her drinking has been a problem, but is hesitant for inpatient treatment as she is invested in her educational program.. She was provided with options in the area that would help to address her presenting factors and we will be happy to assist with that process where able by communicating with her outpatient providers if necessary affirming their recommendation for local IOP, as well as AA with consideration for home group and sponsor after [facility] to help her wtih sustainability. She denies suicidal ideation or urges to self-harm at this point in time. Pt is very luciano during our discussions and states that her alcohol intoxication was not an attempt at suicide and that she has not been struggling with those thoughts for some time prior to her admission. She is able to verbalize resources if she felt unsafe or future SI for support to include social and clinical resources. As patient is not at risk for immediate harm to herself or others, continuing with her outpatient providers is the least restrictive environment at this time for her to address her restrictive eating and alcohol use as although she is ill and high risk for ongoing eating disordered behavior and alcohol abuse she pressently cannot be compelled to eating disordered or substance abuse treatment at this time. Inventory Assets Strengths: willingness for treatment, support of family and friends Needs: treatment for alcohol abuse, ongoing treatment for restrictive eating. Risk Factors Assessment /single/: Yes Access to guns: No Health problems: Yes Substance use disorders: Yes Family history of suicide: No Previous psychiatric stay: Yes Protective Factors Assessment Hindu beliefs: Yes ("sure") : No Responsible for young children: No Employed: No (Student) Supportive family: Yes Recommendations (1) Alcohol intoxication - Pt denies alcohol intoxication was in attempt to commit suicide. She denies current suicidality and reports being off her medications for the past few days. Would recommend continuing AWSS protocol due to excessive alcohol intake sustained over the past year. She denies ongoing symptoms at this point in time. Pt states she has gone through mild withdrawal in the past. - Inpatient alcohol rehabilitation should be considered due to patient's significant abuse over the last year. Pt is willing for treatment, but is unsure if she is interested in rehab at this point in time as she is highly involved with her educational program. She is aware of risk factors of continued alcohol use, but also recognizes that she uses it to distract from stress in other areas of her life. She has weekly follow-up with her therapist and is being seen monthly for management of medications by [facility]. Pt is aware that her alcohol use has become a problem and is interested in a higher level of treatment at this time. It was recommended to patient that an intensive outpatient program might be beneficial as it would allow her to get a high level of treatment for her alcohol use, but allow her to continue to work on her academic program. Sponsors and home group for AA were also discussed. This is the least restrictive environment for treatment at this time, we cannot compel the patient to participate in an inpatient rehabilitation program, but will continue to provide resources and be of assistance as the patient seeks treatment. (2) Eating disorder - Would agree with attending physician's recommendations to replenish and encourage eating of regular meals. - Pt states willingness to participate in treatment for her eating disorder, but reports concern about withdrawal from school at this point in her studies. At this point in time, her current outpatient treatment with Dr Lawrence, Dr. Tafoya and [facility] is the least restrictive environment for treatment of her current restrictions with eating habits. Pt is aware of these habits and the potential harm to continued behavior. Pt does not appear to be an imminent danger to herself at this point in time, but would highly recommend close follow -up with outpatient providers and consideration of more intensive treatment options upon discharge for the time when patient does become willing. We cannot compel her to a higher level of treatment at this time. Patient is aware of her risks in regard to BMI of 13.5 and admission to long history of restrictive behavior. She is aware that mitigation of risk factors is necessary. Will continue to supply information and resources for patient to consider and be as helpful as we can during this process. Note scribed by Isabelle Tapia PA-C with permission by Dr. Adele Zelaya, who was present for evaluation and assisted with psychiatric consult of the above patient.
[2017-05-04 16:52] LABS: CALCIUM 8.5 mg/dl (8.5-10.1); CREATININE 0.56 mg/dl (0.60-1.20); POTASSIUM 3.5 mmol/L (3.5-5.1)
[2017-05-04 19:43] VITALS: BP 130/87; PULSE 70; TEMP 36.9; O2SAT 99
[2017-05-04 23:20] VITALS: BP 136/63; PULSE 74; TEMP 36.9; O2SAT 100
[2017-05-04] MEDS: THIAMINE HCL INJ 100 MG in SYRINGE 9 ML IV SCH (23:29)
[2017-05-05 03:53] VITALS: BP 127/85; PULSE 86; TEMP 37; O2SAT 99
[2017-05-05] MEDS: MULTI-VITAMIN INFUSION INJ 10 ML, THIAMINE HCL INJ 100 MG, FoLIC ACID INJ 1 MG in SODIU... IV SCH (07:39)
[2017-05-05] MEDS: FoLIC ACID INJ 1 MG in SYRINGE 9.8 ML IV SCH (07:39)
[2017-05-05] MEDS: CHLORDIAZEPOXIDE 10 MG CAP PO SCH (07:43)
[2017-05-05 08:01] VITALS: BP 106/79; PULSE 77; TEMP 36.9; O2SAT 100
--- NOTE | 2017-05-05 08:24 | Discharge Instructions ---
Discharge Instructions Date of Service May 05, 2017. Admission Reason for Admission: Alcohol Intoxication / Withdrawal Discharge Discharge Diagnosis / Problem: alcohol intoxication Discharge Goals Goal(s): Decrease discomfort, Improve function, Improve disease control, Improve nutritional status, Learn about illness, Therapeutic intervention, Prevent Disease Progression Activity Recommendations Activity Limitations: resume your previous activity . Current Hospital Diet Patient's current hospital diet: Regular Diet Discharge Diet Recommended Diet: Regular Diet Pending Studies Studies pending at discharge: no Medical Emergencies . Who to Call and When: Medical Emergencies: If at any time you feel your situation is an emergency, please call 911 immediately. . Non-Emergent Contact Non-Emergency issues call your: Primary Care Provider . . "Provider Documentation" section prepared by Fracisco Read . VTE Core Measure Inpt VTE Proph given/why not?: SCD's
--- NOTE | 2017-05-05 08:45 | Discharge Summary ---
Discharge Summary Date of Service May 05, 2017. Discharge Summary Admission Date: May 03, 2017 at 06:33 Discharge Date: May 05, 2017 Discharge Disposition: Home Principal Diagnosis: alcohol intoxication Problems/Secondary Diagnoses: Eating disorder Procedures: none Consultations: Psychiatrist Medication Reconciliation Continued Medications: Desvenlafaxine Succinate Er (Pristiq) 100 Mg Tab 100 MG PO DAILY, TAB Folic Acid (Folvite) 1 Mg Tab 1 TAB PO DAILY for 90 Days, #90 TAB 1 Refill Thiamine Hcl (Vitamin B-1) 50 Mg Tab 50 MG PO DAILY for 30 Days, #30 TAB Discharge Exam Review of Systems: Constitutional: No fever, No chills, No sweats, No weight loss, No fatigue, No problem reported Respiratory: No cough, No sputum, No wheezing, No shortness of breath, No dyspnea on exertion, No dyspnea at rest Cardiovascular: No chest pain, No orthopnea, No edema, No palpitations Abdomen: No pain, No nausea, No vomiting, No diarrhea, No constipation Psychiatric: + anxiety, + problem reported (ETOH), No depression symptoms, No insomnia Endocrine: No fatigue Integumentary: No rash Physical Exam: General Appearance: no apparent distress, + thin Eyes: EOMI Neck: supple, no adenopathy Respiratory/Chest: lungs clear, normal breath sounds, no respiratory distress, no accessory muscle use Cardiovascular: regular rate, rhythm, no edema, no gallop, no JVD, no murmur Abdomen / GI: normal bowel sounds, non tender, soft Neurologic/Psychiatric: ginning operator II-XII nml as tested, no motor/sensory deficits , alert, normal reflexes, oriented x 3 Skin: no rash Lymphatic: no adenopathy Hospital Course Assessment and Plan 26 y/o F Hx Anorexia Nervosa, ETOH abuse. Pt was found at home severely intoxicated and brought to the ER by a friend. She was poorly responsive on arrival with an alcohol level of 402. She appeared to be developing withdrawal symptoms while recovering in the ER exhibiting tremors and tachycardia. The pt had received a total of 9mg Ativan at the time of medical evaluation and was unable to stay awake long enough to answer any questions. Currently doing welll able to tolerate some clear diet. She denies suicidal ideation or urges to self-harm at this point in time. Pt is very luciano during our discussions and states that her alcohol intoxication was not an attempt at suicide and that she has not been struggling with those thoughts for some time prior to her admission. She is able to verbalize resources if she felt unsafe or future SI for support to include social and clinical resources. As patient is not at risk for immediate harm to herself or others, continuing with her outpatient providers is the least restrictive environment at this time for her to address her restrictive eating and alcohol use as although she is ill and high risk for ongoing eating disordered behavior and alcohol abuse she pressently cannot be compelled to eating disordered or substance abuse treatment at this time. 1) ETOH Pt denies alcohol intoxication was in attempt to commit suicide. She denies current suicidality and reports being off her medications for the past few days. She denies ongoing symptoms at this point in time. Pt states she has gone through mild withdrawal in the past. - Inpatient alcohol rehabilitation is not needed and patient is currently not in withdrawal. However advise patient if she experience the symptoms of alcohol withdraw she can always come back. She is very well aware of the symptoms.( tachycardia, termers, shakiness, agitation, trouble sleeping and night sweats) Pt is willing for treatment, but is unsure if she is interested in rehab at this point in time as she is highly involved with her educational program. She is aware of risk factors of continued alcohol use, but also recognizes that she uses it to distract from stress in other areas of her life. She has weekly follow-up with her therapist and is being seen monthly for management of medications by [facility]. It was recommended to patient that an intensive outpatient program might be beneficial as it would allow her to get a high level of treatment for her alcohol use, but allow her to continue to work on her academic program. Sponsors and home group for AA were also discussed. This is the least restrictive environment for treatment at this time, we cannot compel the patient to participate in an inpatient rehabilitation program, but will continue to provide resources and be of assistance as the patient seeks treatment. 2) Eating disorder- Would agree with attending physician's recommendations to replenish and encourage eating of regular meals. - Pt states willingness to participate in treatment for her eating disorder, but reports concern about withdrawal from school at this point in her studies. At this point in time, her current outpatient treatment with Dr Lawrence, Dr. Tafoya and Zaida Russell is the least restrictive environment for treatment of her current restrictions with eating habits. Pt is aware of these habits and the potential harm to continued behavior. Pt does not appear to be an imminent danger to herself at this point in time, but would highly recommend close follow -up with outpatient providers and consideration of more intensive treatment options upon discharge for the time when patient does become willing. We cannot compel her to a higher level of treatment at this time. Patient is aware of her risks in regard to BMI of 13.5 and admission to long history of restrictive behavior. She is aware that mitigation of risk factors is necessary. Will continue to supply information and resources for patient to consider and be as helpful as we can during this process. 3) Hypokalemia - resolved patient is willing to discharge in self care. Pt father is aware of our plan and discuss the case over phone. Total Time Spent: Greater than 30 minutes This includes examination of the patient, discharge planning, medication reconciliation, and communication with other providers. Discharge Instructions Please refer to the electronic Patient Visit Report (Discharge Instructions) for additional information. Follow-Up with pcp in [address] Tafoya
[2017-05-05] MEDS ORDERED: DESVENLAFAXINE SUCCINATE 100 MG PO SCH (09:00)
[2017-05-05] MEDS ORDERED: DESVENLAFAXINE SUCCINATE 25 MG PO SCH (09:00)
[2017-05-05 09:40] VITALS: BP 106/79; PULSE 77; TEMP 36.9; O2SAT 100
== END 2017-05-05 09:56 | disposition home or self-care (01) | DRG 896 ==
LOC: EDBD 19:56 → C.EDC 19:57 → C.2E 05-03 06:33 → ENRESERV 05-03 06:46
PROVIDERS: ADMIT Internal Medicine; ATTEND Internal Medicine
DX: F10.239 Alcohol dependence with withdrawal, unspecified (principal); E43 Unspecified severe protein-calorie malnutrition; F50.00 Anorexia nervosa, unspecified; Z68.1 Body mass index [BMI] 19.9 or less, adult; Z79.899 Other long term (current) drug therapy; E87.6 Hypokalemia

== ENCOUNTER 2017-08-17 13:37 | Emergency (ER) | payer OTHER ==
[~2017-08-17] VITALS: Ht 157.5 cm; Wt 46.8 kg
[2017-08-17 13:48] VITALS: TEMP 36.9; Ht 157.5 cm; Wt 46.8 kg
[2017-08-17 14:29] VITALS: O2SAT 98
[2017-08-17] MEDS ORDERED: ONDANSETRON 4MG OD TAB PO ONE (14:30)
--- NOTE | 2017-08-17 14:37 | EMERGENCY ROOM VISIT NOTE ---
ED Visit Note First contact with patient: 13:49 CHIEF COMPLAINT: Alcohol overdose HISTORY OF PRESENTING ILLNESS: Patient was brought to the emergency department via EMS with concern for alcohol overdose. Per EMS and nursing staff, the patient was found outside of a bar, notably intoxicated. Patient did have some facial abrasions secondary to a suspected unwitnessed fall. Patient has been mostly unconscious since arrival, but does wake up to some stimulation and has purposeful movements. REVIEW OF SYSTEMS: Limited review of systems provided by EMS. Unable to obtain review of systems from the patient due to altered mental status. 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 ALLERGIES: No known allergies. PHYSICAL EXAM: VITALS - Vitals are noted on the nurse's note and reviewed by myself. Vital signs stable. GENERAL -altered mental status, unconscious and minimally responsive to stimulation, but maintaining airway without difficulty. No acute distress, non- diaphoretic, well-developed well-nourished. The patient smells strongly of alcohol. SKIN -Abrasions noted to the face, the skin was otherwise without obvious lacerations, abrasions, or rashes. Multiple healed scars noted to the arms and legs. There is no tenting of the skin. Capillary reflex less than 2 seconds. HEENT - Normocephalic. There is an abrasion and moderate hematoma to the right frontal forehead. There is a small abrasion to the bridge of the nose. PERRL. Unable to assess extraocular movement. Conjunctiva with mild injection without icterus. Tympanic membranes without erythema or effusion bilaterally no hemotympanum. External auditory canals are clear. Nares are patent bilaterally with no septal hematoma, epistaxis, or dried blood noted. Oropharynx without erythema or exudate. Uvula midline. Oral mucosal moist. No lymphadenopathy. NECK - No ecchymosis, abrasions, or swelling noted to the neck. Patient was placed into a hard c-collar for C-spine protection. HEART - Tachycardic. Regular rhythm without murmurs gallops or rubs. Peripheral pulses 2+. No extremity edema noted. LUNGS - Clear to auscultation bilaterally without wheezes, rales or rhonchi. Patent airway. No tachypnea or bradypnea. ABDOMEN - Positive bowel sounds x 4. Normal tympanic percussion. Soft, nontender, without masses or organomegaly. NEUROLOGIC: Patient is unresponsive to verbal stimulation, minimal response to tactile stimulation. Purposeful movements noted. Altered mental status. ED COURSE AND MEDICAL DECISION MAKING: CC: Patient presenting with complaint of alcohol overdose DIFFERENTIAL DIAGNOSIS: Includes, but not limited to alcohol intoxication, substance abuse, facial trauma, intracranial hemorrhage, cervical spine injury, electrolyte abnormality, Barbiturate Toxicity, Benzodiazepine Toxicity, Depression and Suicidality, Diabetic Ketoacidosis, Encephalitis, Opioid Toxicity , among others. INTERPRETATION OF LABS: Mild hypernatremia and hyperchloremia, labs otherwise unremarkable. Significantly elevated alcohol level of 396.8 mg/dL. Serum negative. IMAGING: HEAD WITHOUT CONTRAST (CT) CLINICAL HISTORY: 27 years-old Female presenting with facial abrasions, +etOH, eval trauma. TECHNIQUE: Multidetector CT imaging of the head was performed without the use of intravenous contrast. IV contrast: None. A dose lowering technique was used consistent with the principles of ALARA (as low as reasonably achievable). COMPARISON: 05/02/2017. CT DOSE (mGy.cm): The estimated cumulative dose is 1364.43. FINDINGS: Web Press Operator topogram: Unremarkable. Ventricles and sulci normal in size. Brain parenchyma normal in appearance with preserved issa-white differentiation. No mass effect or midline shift. No hemorrhage or acute territorial infarct. No extra-axial fluid collection. Paranasal sinuses and mastoid air cells clear. Calvarium intact. Mild soft tissue swelling over the right frontal scalp with trace subgaleal hematoma. No subjacent osseous injury. IMPRESSION: 1. No acute intracranial abnormality. 2. Limited right frontal scalp contusion with trace subgaleal hematoma. ----- FACIAL BONES-MXILLOFAC WITHOUT CLINICAL HISTORY: 27 years-old Female presenting with facial abrasions, +etOH, eval trauma. TECHNIQUE: Multidetector CT of the face was performed without the use of intravenous contrast. IV contrast: None. A dose lowering technique was used consistent with the principles of ALARA (as low as reasonably achievable). COMPARISON: None. CT DOSE (mGy.cm): The estimated cumulative dose is 1364.43. FINDINGS: Web Press Operator topogram: Unremarkable. Paranasal sinuses and mastoid air cells clear. Skull base intact. Leftward deviation of the bony nasal septum with bony spurring, chronic. Nasal bones intact. Teeth intact. Mandible intact. Temporomandibular joints intact. Soft tissues of the face demonstrate mild infiltration of the frontal region without significant swelling. No other significant abnormality. IMPRESSION: No acute osseous injury of the face. ----- CERVICAL SPINE W/O CLINICAL HISTORY: 27 years-old Female presenting with facial abrasions, +etOH, eval trauma. TECHNIQUE: Multidetector CT of the cervical spine was performed without the use of intravenous contrast. IV contrast: None. A dose lowering technique was used consistent with the principles of ALARA (as low as reasonably achievable). COMPARISON: 05/02/2017. CT DOSE (mGy.cm): The estimated cumulative dose is 1364.43 mGy.cm. FINDINGS: Web Press Operator topogram: Unremarkable. Straightening of normal cervical lordosis likely positional and related to the presence of a cervical collar. Vertebral bodies maintain normal height and alignment. Intervertebral disc spaces maintained. No osseous neural foraminal or spinal canal narrowing. No acute fracture or subluxation. Skull base intact. Lung apices clear. Soft tissues of the neck within normal limits allowing for noncontrast mild subcutaneous edema noted diffusely in the neck. IMPRESSION: 1. No acute osseous injury of the cervical spine. 2. Diffuse edema in the neck, possibly related to trauma or aggressive volume resuscitation. MEDICATION RECONCILIATION: I attest that I have personally reviewed the patient 's current medication list. INITIAL VITAL SIGNS REVIEW: I reviewed the patient's initial vital signs and interpret them as follows: T: Afebrile; BP: Normotensive; HR: Tachycardic; RR : Within normal limits; Pulse Ox: Within normal limits on room air. Blood pressure screening: The patient was found to have normal blood pressure on screening and does not require follow-up for repeat blood pressure check. SUMMARY: Patient was evaluated at bedside, patient had already been placed prone in the stretcher and placed on the monitor by nursing staff. Minimal history available due to patient's mental state. A physical exam performed. Patient was noted to have multiple abrasions to the face and hematoma to the right forehead. Unclear history of how she obtained facial trauma, but is believed that she fell while intoxicated. I discussed with patient's nurse, requested that the patient be turned onto her back and placed into a hard c-collar for C-spine protection, given the concern for possible trauma. Orders were placed at bedside for labs, serum , medical alcohol level, and CT imaging of the head, facial bones, and cervical spine to evaluate for trauma. Patient discussed with Dr. Woodruff, who agrees with my assessment and plan. Labs and imaging reviewed as above, notable for significantly elevated alcohol level. I spoke on the phone with Dr. Campbell, radiologist, regarding spine and his note of mild diffuse edema of the neck. He states that this does not fit a pattern of trauma, and may be secondary to patient's large consumption of alcohol as a fluid overload. He specifically notes no evidence of bony trauma or localized soft tissue swelling. Patient reassessed multiple times throughout ED stay, she has remained stable on monitor. On subsequent reassessment, the patient is now awake and talking, alert and oriented. Her c-collar was removed and she denies any neck pain. She has a sober friend at bedside who is willing to take her home. Patient was updated on all results and plan for discharge, she was encouraged to follow closely with her primary care provider. After a lengthy stay in the Emergency Department the patient eventually was awoken, she was updated on all results and was educated on today's visit. The patient was deemed appropriate for discharge with her sober friend. She was encouraged to refrain from heavy drinking. All labs and diagnostics were reviewed. Patient was discharged home in stable condition and ambulatory. Problem List Medical Problems: (1) Eating disorder Status: Chronic Surgical Problems: (1) No significant past surgical history Status: Chronic Current/Historical Medications Unable to Obtain Active Prescriptions or Reported Meds Allergies Coded Allergies: No Known Allergies (Unverified , 08/06/15) Vital Signs Date Time Temp Pulse Resp B/P (MAP) Pulse Ox O2 Delivery O2 Flow Rate FiO2 08/17/17 20:45 99 106/67 95 08/17/17 19:32 107 16 106/67 99 Room Air 08/17/17 18:07 106 18 112/86 99 Room Air 08/17/17 18:00 102 17 106/67 98 Room Air 08/17/17 17:07 111 18 105/78 97 Room Air 08/17/17 15:32 105 17 84/59 97 Room Air 08/17/17 14:34 123 18 91/79 98 Room Air 08/17/17 14:29 98 Room Air 08/17/17 14:29 98 Room Air 08/17/17 13:48 36.9 110 18 108/73 99 Room Air 08/17/17 13:47 101 Laboratory Results 08/17/17 14:32 Test 08/17/17 14:32 08/17/17 14:33 Anion Gap 6.0 mmol/L (3-11) Est Creatinine Clear Calc Drug Dose 94.6 ml/min Estimated GFR () 140.3 Estimated GFR (Non- 121.1 BUN/Creatinine Ratio 17.0 (10-20) Calcium Level 8.6 mg/dl (8.5-10.1) Human Chorionic Gonadotropin, Qual NEG (NEG) Ethyl Alcohol mg/dL 396.8 mg/dl (0-3) Bedside Glucose 98 mg/dl (70-90) Medications Administered Medications (Trade) Dose Ordered Sig/Trina Route Start Time Stop Time Status Last Admin Dose Admin Ondansetron HCl (Zofran Odt) 4 mg ONE ONCE PO 08/17/17 14:30 08/17/17 14:31 DC 08/17/17 14:37 4 MG Departure Information Impression Primary Impression: Facial contusion Additional Impression: Alcohol overdose Dispostion Home / Self-Care Condition GOOD Prescriptions Unable to Obtain Active Prescriptions or Reported Meds Referrals No Doctor, Assigned (PCP) Patient Instructions ED Alcohol Intoxication, ED Overdose Alcohol, [facility] Additional Instructions You have been evaluated and treated in the emergency department today for your alcohol overdose and facial abrasions. Keep your abrasions clean and dry. You may clean with soap and water, then apply a thin film of antibiotic ointment to the area. Keep covered in the sun, and apply sunscreen after the areas are healed to help reduce chances of scarring. You may also use vitamin E oil or scar cream to minimize scarring. Do not drink any further alcohol this weekend and avoid such excessive drinking in the future. Increase fluids over the next 48 hours. Tylenol 500 mg every 6 hours as needed for pain/headache Do not drive or operate machinery for the next 24 hours. Follow-up with your PCP as needed. Please return to the emergency department for any worsening symptoms, including severe headache, vision changes, persistent vomiting, numbness or weakness on one side of the body, confusion, fever/chills, or any other concerns. Problem Qualifiers Primary Impression: Facial contusion Encounter type: initial encounter Qualified Codes: S00.83XA - Contusion of other part of head, initial encounter Additional Impression: Alcohol overdose Encounter type: initial encounter Injury intent: undetermined intent Qualified Codes: T51.94XA - Toxic effect of unspecified alcohol, undetermined, initial encounter
--- NOTE | 2017-08-17 14:59 | DIAGNOSTIC IMAGING REPORT ---
HEAD WITHOUT CONTRAST (CT) CLINICAL HISTORY: 27 years-old Female presenting with facial abrasions, +etOH, eval trauma. TECHNIQUE: Multidetector CT imaging of the head was performed without the use of intravenous contrast. IV contrast: None. A dose lowering technique was used consistent with the principles of ALARA (as low as reasonably achievable). COMPARISON: 05/02/2017. CT DOSE (mGy.cm): The estimated cumulative dose is 1364.43. FINDINGS: Pharmaceutical Botanist topogram: Unremarkable. Ventricles and sulci normal in size. Brain parenchyma normal in appearance with preserved issa-white differentiation. No mass effect or midline shift. No hemorrhage or acute territorial infarct. No extra-axial fluid collection. Paranasal sinuses and mastoid air cells clear. Calvarium intact. Mild soft tissue swelling over the right frontal scalp with trace subgaleal hematoma. No subjacent osseous injury. IMPRESSION: 1. No acute intracranial abnormality. 2. Limited right frontal scalp contusion with trace subgaleal hematoma. Electronically signed by: Humza Campbell M.D. 08/17/2017 2:58 PM Dictated Date/Time: 08/17/2017 2:55 PM
--- NOTE | 2017-08-17 15:04 | DIAGNOSTIC IMAGING REPORT ---
CERVICAL SPINE W/O CLINICAL HISTORY: 27 years-old Female presenting with facial abrasions, +etOH, eval trauma. TECHNIQUE: Multidetector CT of the cervical spine was performed without the use of intravenous contrast. IV contrast: None. A dose lowering technique was used consistent with the principles of ALARA (as low as reasonably achievable). COMPARISON: 05/02/2017. CT DOSE (mGy.cm): The estimated cumulative dose is 1364.43 mGy.cm. FINDINGS: Rv Repair Technician topogram: Unremarkable. Straightening of normal cervical lordosis likely positional and related to the presence of a cervical collar. Vertebral bodies maintain normal height and alignment. Intervertebral disc spaces maintained. No osseous neural foraminal or spinal canal narrowing. No acute fracture or subluxation. Skull base intact. Lung apices clear. Soft tissues of the neck within normal limits allowing for noncontrast mild subcutaneous edema noted diffusely in the neck. IMPRESSION: 1. No acute osseous injury of the cervical spine. 2. Diffuse edema in the neck, possibly related to trauma or aggressive volume resuscitation. Electronically signed by: Humza Campbell M.D. 08/17/2017 3:03 PM Dictated Date/Time: 08/17/2017 2:58 PM
--- NOTE | 2017-08-17 15:06 | DIAGNOSTIC IMAGING REPORT ---
FACIAL BONES-MXILLOFAC WITHOUT CLINICAL HISTORY: 27 years-old Female presenting with facial abrasions, +etOH, eval trauma. TECHNIQUE: Multidetector CT of the face was performed without the use of intravenous contrast. IV contrast: None. A dose lowering technique was used consistent with the principles of ALARA (as low as reasonably achievable). COMPARISON: None. CT DOSE (mGy.cm): The estimated cumulative dose is 1364.43. FINDINGS: Shift Production Associate topogram: Unremarkable. Paranasal sinuses and mastoid air cells clear. Skull base intact. Leftward deviation of the bony nasal septum with bony spurring, chronic. Nasal bones intact. Teeth intact. Mandible intact. Temporomandibular joints intact. Soft tissues of the face demonstrate mild infiltration of the frontal region without significant swelling. No other significant abnormality. IMPRESSION: No acute osseous injury of the face. Electronically signed by: Humza Campbell M.D. 08/17/2017 3:05 PM Dictated Date/Time: 08/17/2017 3:03 PM
[2017-08-17 15:11] LABS: CALCIUM 8.6 mg/dl (8.5-10.1); CREATININE 0.66 mg/dl (0.60-1.20); POTASSIUM 4.1 mmol/L (3.5-5.1)
[2017-08-17 20:45] VITALS: BP 106/67; PULSE 99; O2SAT 95
== END 2017-08-17 20:47 | disposition home or self-care (01) ==
LOC: EDBD 13:37 → C.EDA 13:39
DX: S00.83XA Contusion of other part of head, initial encounter (principal); T51.0X1A Toxic effect of ethanol, accidental (unintentional), initial encounter; W19.XXXA Unspecified fall, initial encounter; Y92.89 Other specified places as the place of occurrence of the external cause